=== PATIENT | female | born 1990 | race African-American/Black ===

== ENCOUNTER 2022-09-16 11:08 | Emergency (ER) | payer MEDICARE, MEDICAID ==
[~2022-09-16] VITALS: Ht 152.4 cm; Wt 80.5 kg
[2022-09-16 11:15] VITALS: BP 142/106; PULSE 100; TEMP 98.3
[2022-09-16 11:43] LABS: COLLECTION METHOD CLEAN CATCH
[2022-09-16 12:00] LABS: URINE APPEARANCE Clear (CLEAR/HAZY); URINE BLOOD Negative (NEGATIVE); URINE COLOR Amber (YELLOW); URINE GLUCOSE Negative (NEGATIVE); URINE KETONE Negative (NEGATIVE); URINE NITRATE Positive (NEGATIVE); URINE PROTEIN(semi-quant) Negative (NEGATIVE); URINE UROBILINOGEN 0.2 E.U/dL (0.2-1.0)
[2022-09-16 12:03] LABS: MUCOUS Present (NOT PRESENT); URINE BACTERIA Rare /hpf (NONE SEEN); URINE RBC 0-2 /hpf (0-2)
== END 2022-09-16 13:46 | disposition home or self-care (01) ==
LOC: COL.ER 11:08
PROVIDERS: Nurse Practitioner Family
DX: R39.15 Urgency of urination (principal); R30.0 Dysuria; R35.0 Frequency of micturition; Z87.440 Personal history of urinary (tract) infections; Z28.310 Unvaccinated for COVID-19